=== PATIENT | female | born 1980 | race Two or more races ===

== ENCOUNTER 2017-12-23 01:07 | Emergency (ER) | payer MEDICAID ==
[~2017-12-23] VITALS: Ht 160 cm; Wt 88.5 kg
[2017-12-23] MEDS ORDERED: AMOXICILLIN (02:08)
[2017-12-23] MEDS ORDERED: ABILIFY (02:08)
[2017-12-23] MEDS ORDERED: TRA (02:08)
--- NOTE | 2017-12-23 02:22 | NUR ---
Patient discharged to home in stable conditon. Written and verbal after care instructions given. Patient verbalizes understanding of instructions.
== END 2017-12-23 02:25 | disposition home or self-care (01) ==
LOC: ER 01:11
DX: J06.9 Acute upper respiratory infection, unspecified (principal); N92.0 Excessive and frequent menstruation with regular cycle; Z59.0 Homelessness
CPT/HCPCS: A4663